=== PATIENT | female | born 1985 | race Caucasian/White ===

== ENCOUNTER 2024-03-04 12:28 | Inpatient (IN) | payer BC, SELFPAY ==
[2024-03-04 12:39] VITALS: BP 125/84; PULSE 96; RESP 18; TEMP 37.1; O2SAT 96; BMI 29.8
[2024-03-04 12:52] LABS: Glucose Point of Care 359 mg/dL (70-110)
--- NOTE | 2024-03-04 13:08 | ED.C_ITS ---
HPI - Psych 2 General: Chief Complaint: Psychiatric Symptoms Stated Complaint: MHE Time Seen by Provider: 03/04/24 12:36 Source: patient Mode of arrival: ambulatory Limitations: no limitations History of Present Illness: 30-year-old female states she has a hist ory of bipolar disorder along with depression states she has been out of her meds and has been having increasing depression. States he had some passing suicidal thoughts no active plans she states she does only be admitted to get some help. She is calm and cooperative here. Associated symptoms: Reports depression and suicidal ideation Review of Systems 2 Const: Denies: fever(s), chills, body aches or change in appetite Eyes: Denies: blurry vision or eye discomfort ENMT: Denies: throat pain or dental pain Card: Denies: chest pain Resp: Denies: dyspnea GI: Denies: abdominal pain, nausea, vomiting or diarrhea Musc: Denies: neck pain or back pain Skin/Breast: Denies: rash Neuro: Denies: headache(s) Psych: Reports: depression and suicidal ideation Physical Exam 2 Const: COMMON NORMALS: no acute distress, patient oriented x3 and healthy appearing HENMT: COMMON NORMALS: normocephalic and atraumatic HEAD & SCALP: n ormocephalic and atraumatic Neck/C-Spine: COMMON NORMALS: full ROM and supple Chest: COMMONS NORMALS: normal inspection of the chest Resp: COMMON NORMALS: normal respiratory effort Cardio: COMMON NORMALS: regular rate, regular rhythm and No murmurs present (Cardio) RATE: regular rate RHYTHM: regular rhythm Extremity: COMMON NORMALS: normal to inspection and full ROM Neuro: COMMON NORMALS: patient oriented x3, moves all extremities and no focal motor deficits Psych: COMMON NORMALS: mental status grossly normal, Normal thought process present and cooperative THOUGHT PROCESS: Normal thought process present Skin: COMMON NORMALS: no rashes or lesions noted and no wounds GENERAL SKIN EXAM: no rashes or lesions noted Course 2 Vital Signs: Vital signs: Vital Signs Temperature 98.8 F 03/04/24 12:39 Pulse Rate 100 03/04/24 14:19 Respiratory Rate 18 03/04/24 12:39 Blood Pressure 119/78 03/04/24 14:19 Pulse Oximetry 97 03/04/24 14:19 Oxygen Delivery Me thod Room Air 03/04/24 14:19 MDM - Psych Medical Decision Making Patient presents here with suicidal ideation she voluntarily wants to be admitted to the psych nino to get help she is medically cleared I spoke to the psychiatrist and will admit. Medical Records I reviewed the patient's medical records. Lab Data I reviewed the patient's lab results. 03/04/24 12:54 03/04/24 12:54 Laboratory Results WBC 9.99 10^3/uL (3.29-11.43) 03/04/24 12:54 RBC 4.75 10^6/uL (3.85-5.65) 03/04/24 12:54 Hgb 14.80 g/dL (11.27-16.99) 03/04/24 12:54 Hct 44.0 % (36-47) 03/04/24 12:54 MCV 92.6 fl (85-98) 03/04/24 12:54 MCH 31.2 pg (27-33) 03/04/24 12:54 MCHC 33.6 g/dL (30-55) 03/04/24 12:54 RDW 12.9 % (12.1-15.1) 03/04/24 12:54 Plt Count 234 10^3/cmm (157-399) 03/04/24 12:54 MPV 12.6 fL (7.4-10.4) H 03/04/24 12:54 Neut % (Auto) 65.7 % 03/04/24 12:54 Lymph % (Auto) 25.1 % 03/04/24 12:54 [place] % (Auto) 6.4 % 03/04/24 12:54 Eos % (Auto) 1.9 % 03/04/24 12:54 Baso % (Auto) 0.6 % 03/04/24 12:54 Neut # (Auto) 6.56 10^3/uL (1.8-7.7) 03/04/24 12:54 Lymph # (Auto) 2.5 10^3/uL (0.8-4.8) 03/04/24 12:54 [place] # (Auto) 0.6 10^3/uL (0.2-0.9) 03/04/24 12:54 Eos # (Auto) 0.2 10^3/uL (0.0-0.8) 03/04/24 12:54 Baso # (Auto) 0.1 10^3/uL (0.0-0.1) 03/04/24 12:54 Nucleated RBC % (auto) 0 % 03/04/24 12:54 Nucleated RBCs # 0.0 /100WBC 03/04/24 12:54 Sodium 135 mmol/L (136-145) L 03/04/24 12:54 Potassium 4.2 mmol/L (3.5-5.1) 03/04/24 12:54 Chloride 100 mmol/L (98-107) 03/04/24 12:54 Carbon Dioxide 20 mmol/L (22-29) L 03/04/24 12:54 Anion Gap 19.2 (5-19) H 03/04/24 12:54 BUN 11 mg/dL (6-20) 03/04/24 12:54 Creatinine 0.5 mg/dL (0.5-0.9) 03/04/24 12:54 GFR Calculation 138.1 mL/min (90-130) H 03/04/24 12:54 Glucose 372 mg/dL (65-115) H 03/04/24 12:54 POC Glucose 359 mg/dL (70-110) H 03/04/24 12:50 Calculated Osmolality 295 mOsm/kg (285-295) 03/04/24 12:54 Calcium 8.6 mg/dL (8.5-10.5) 03/04/24 12:54 Total Bilirubin 0.4 mg/dL (0.15-1.2) 03/04/24 12:54 AST 48 U/L (0-32) H 03/04/24 12:54 ALT 59 U/L (0-33) H 03/04/24 12:54 Alkaline Phosphatase 89 U/L (35-105) 03/04/24 12:54 Total Protein 7.9 g/dL (6.6-8.7) 03/04/24 12:54 Albumin 4.2 g/dL (3.5-5.2) 03/04/24 12:54 Globulin 3.7 g/dL (1.3-4.6) 03/04/24 12:54 HCG, Qual Negative (Negative) 03/04/24 13:01 Salicylates 1.1 mg/dL (3-10) L 03/04/24 12:54 Urine Opiates Screen Negative ng/mL (Negative) 03/04/24 13:01 Acetaminophen < 5.0 ug/mL (10-30) L 03/04/24 12:54 Ur Barbiturates Screen Negative ng/mL (Negative) 03/04/24 13:01 Ur Phencyclidine Scrn Negative ng/mL (Negative) 03/04/24 13:01 Ur Amphetamines Screen Negative ng/mL (Negative) 03/04/24 13:01 U Benzodiazepines Scrn Negative ng/mL (Negative) 03/04/24 13:01 Urine Cocaine Screen Negative ng/mL (Negative) 03/04/24 13:01 U Marijuana (THC) Screen Positive ng/mL (Negative) H 03/04/24 13:01 No radiology studies performed this visit Discharge Plan Discharge Admit Provider: Anand Gilliland Condition: Stable Coding Level of Care Code ED Cutter Operator Helper for Jennifer Grover
[2024-03-04] MEDS: insulin nph human 100 units/1 mL 8 UNIT SUBCUT (13:16)
[2024-03-04 13:23] LABS: Basophils # 0.1 10^3/uL (0.0-0.1); Basophils % 0.6 %; Eosinophils # 0.2 10^3/uL (0.0-0.8); Eosinophils % 1.9 %; Lymphocytes # 2.5 10^3/uL (0.8-4.8); Lymphocytes % 25.1 %; Mean Corpuscular HGB Conc 33.6 g/dL (30-55); Mean Corpuscular Hemoglobin 31.2 pg (27-33); Mean Corpuscular Volume 92.6 fl (85-98); Mean Platelet Volume 12.6 fL (7.4-10.4); Monocytes # 0.6 10^3/uL (0.2-0.9); Monocytes % 6.4 %; Neutrophils # 6.56 10^3/uL (1.8-7.7); Neutrophils % 65.7 %; Nucleated Red Blood Cells % 0 %; Platelet Count 234 10^3/cmm (157-399); Red Blood Count 4.75 10^6/uL (3.85-5.65); Red Cell Distribution Width 12.9 % (12.1-15.1); White Blood Count 9.99 10^3/uL (3.29-11.43)
--- NOTE | 2024-03-04 13:24 | PC.PHAR ---
PT STATES TAKES METFORMIN 1000MG TWICE DAILY AND A LITTLE WHITE PILL STARTING WITH A G (GLYBURIDE 5MG) TWICE DAILY. UNABLE TO VERIFY WITH [facility], [facility], [facility], [facility] IN [place]. THESE MEDS NOT FOUND AT ANY LOCATIONS.
[2024-03-04 13:37] LABS: Acetaminophen < 5.0 ug/mL (10-30); Alanine Aminotransferase 59 U/L (0-33); Albumin Level 4.2 g/dL (3.5-5.2); Alkaline Phosphatase 89 U/L (35-105); Anion Gap 19.2 (5-19); Aspartate Amino Transferase 48 U/L (0-32); Blood Urea Nitrogen 11 mg/dL (6-20); Calcium 8.6 mg/dL (8.5-10.5); Carbon Dioxide 20 mmol/L (22-29); Chloride 100 mmol/L (98-107); Creatinine Clr Calc Pharmacy 166.5266; Globulin 3.7 g/dL (1.3-4.6); Glomerular Filtration Rate 138.1 mL/min (90-130); Glucose 372 mg/dL (65-115); Osmolality Calculated 295 mOsm/kg (285-295); Potassium 4.2 mmol/L (3.5-5.1); Salicylate 1.1 mg/dL (3-10); Sodium 135 mmol/L (136-145); Total Bilirubin 0.4 mg/dL (0.15-1.2); Total Protein 7.9 g/dL (6.6-8.7)
[2024-03-04 13:42] LABS: HCG Qualitative Urine. Negative (Negative)
[2024-03-04 13:56] LABS: Amphetamines Screen Urine Negative (Negative); Barbiturates Screen Urine Negative (Negative); Benzodiazepines Screen Urine Negative (Negative); Cocaine Screen Urine Negative (Negative); Opiate Screen Urine Negative (Negative); PCP Screen Urine Negative (Negative); THC Screen Urine Positive (Negative)
[2024-03-04 14:19] VITALS: BP 119/78; PULSE 100; O2SAT 97
[2024-03-04 14:42] VITALS: BP 106/75; PULSE 83; RESP 16; TEMP 36.9; O2SAT 98
[2024-03-04] MEDS: hyDROXYzine 25 mg Capsule 50 MG PO (15:26)
[2024-03-04] MEDS: nicotine 2 mg Gum BUCCAL (15:27)
[2024-03-04] MEDS: acetaminophen 325 mg Tablet 650 MG PO (16:45)
--- NOTE | 2024-03-04 16:51 | PC.NURSE ---
ADMIT NOTE PT CAME INTO THE EMERGENCY DEPARTMENT WITH COMPLAINT OF INCREASED DEPRESSION. UPON ADMIT TO THE NPU PT STATES THAT SHE IS BIPOLAR. PT STATES IM NOT MENTALLY STABLE RIGHT NOW. I WANT TO HURT PEOPLE WHEN I GET MAD. I JUST DON'T WANT TO LIVE. PT CURRENTLY DENIES ANY PLAN FOR SUICIDE OR ANY SPECIFIC PERSON SHE WANTS TO HARM. PT STATES THAT HE DOES NOT WANT TO KILL HERSELF SHE JUST DOES NOT WANT TO BE ALIVE ANYMORE. WHEN ASKED ABOUT VIOLENT BEHAVIOR PT STATES I HAVE ANGER PROBLEMS. I JUST FIGHT, I LIKE TO FIGHT IT HELPS SOMETHING INSIDE OF ME. . PT WAS COOPERATIVE WITH ASSESSMENT. PT CURRENT NEEDS ARE MET AT THIS TIME.
[2024-03-04 17:16] LABS: Glucose Point of Care 283 mg/dL (70-110)
[2024-03-04] MEDS: nicotine 4 mg lozenge MUCOUS MEM (17:29)
[2024-03-04] MEDS: metformin 500 mg Tablet 1000 MG PO (18:36)
[2024-03-04] MEDS: OLANZapine 5 mg ODT PO (18:44)
--- NOTE | 2024-03-04 19:09 | PC.NURSE ---
Confirmed meds with pharmacy [facility] metformin 100mg BID last filled 02/21/24 Gabapentin 600mg BID last filled 02/23/24 Glipizide 5mg BID last filled 02/22/23 hydroxyzine 50mg BID last filled 03/14/23 Venlafaxine ER 150mg once daily last filled 03/14/23 Trulicity 0.75 mg q 7days last filled 03/14/23
[2024-03-04] MEDS: gabapentin 300 mg Capsule 600 MG PO (20:19)
[2024-03-04 21:03] VITALS: BP 117/80; PULSE 79; RESP 16; TEMP 36.4; O2SAT 98
[2024-03-04 21:12] LABS: Glucose Point of Care 313 mg/dL (70-110)
[2024-03-05 06:00] VITALS: BP 108/75; PULSE 68; RESP 15; TEMP 36.6; O2SAT 98
[2024-03-05 07:43] LABS: Glucose Point of Care 314 mg/dL (70-110)
[2024-03-05] MEDS: metformin 500 mg Tablet 1000 MG PO ×2 (08:35→17:05)
[2024-03-05] MEDS: hyDROXYzine 25 mg Capsule 50 MG PO ×2 (08:36→20:34)
[2024-03-05] MEDS: acetaminophen 325 mg Tablet 650 MG PO (08:36)
[2024-03-05] MEDS: gabapentin 300 mg Capsule 600 MG PO ×2 (08:36→17:05)
--- NOTE | 2024-03-05 08:58 | PC.NURSE ---
PT WATCHING TV IN DAYROOM. DENIES SI/HI AND AVH AT THIS TIME. REPORTS BACK PAIN 8/10 TYLENOL 650 MG GIVEN ORDERED FOR PAIN. RATES ANXIETY 7/10 AND DEPRESSION 0/10. VISTARIL 50 MG GIVEN ORDERED FOR ANXIETY. PT REPORTS SHE DID NOT SLEEP WELL LAST NIGHT. PT EDUCATED ON PRN MEDICATIONS AT NIGHT IF NEEDED. PT GOAL FOR THE DAY IS TO GET MY MENTAL HEALTH FIGURED OUT WHILE I'M HERE. PT IS NOTED TO HAVE DEPRESSED MOOD WITH ANXIETY. FLAT AFFECT IS NOTED. ALL QUESTIONS ANSWERED AND SUPPORT WAS VOICED.
[2024-03-05] MEDS: nicotine 21 mg Patch 1 PATCH TRANSDERMA (10:30)
[2024-03-05] MEDS: OLANZapine 5 mg ODT PO (11:09)
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
[2024-03-05 11:27] LABS: Glucose Point of Care 387 mg/dL (70-110)
[2024-03-05] MEDS: albuterol 2.5 mg/3 mL Neb INHALATION (13:30)
[2024-03-05 13:32] VITALS: PULSE 94; RESP 16; O2SAT 92
[2024-03-05 13:37] VITALS: PULSE 96
[2024-03-05 14:00] VITALS: BP 121/81; PULSE 84; RESP 20; TEMP 36.4; O2SAT 100
[2024-03-05] MEDS: docusate sodium 100 mg Capsule 200 MG PO (17:05)
[2024-03-05 17:18] LABS: Glucose Point of Care 398 mg/dL (70-110)
[2024-03-05 19:57] LABS: Glucose Point of Care 348 mg/dL (70-110)
[2024-03-05] MEDS: trazodone 50 mg Tablet PO (20:35)
[2024-03-05 22:00] VITALS: BP 95/61; PULSE 81; RESP 16; TEMP 36.6; O2SAT 97
[2024-03-06] MEDS: acetaminophen 325 mg Tablet 650 MG PO ×2 (02:58→14:48)
[2024-03-06 06:00] VITALS: BP 111/76; PULSE 75; RESP 16; O2SAT 96
[2024-03-06] MEDS: nicotine 21 mg Patch 1 PATCH TRANSDERMA (07:51)
[2024-03-06 07:52] LABS: Glucose Point of Care 403 mg/dL (70-110)
[2024-03-06] MEDS: gabapentin 300 mg Capsule 600 MG PO ×2 (07:54→17:59)
[2024-03-06] MEDS: hyDROXYzine 25 mg Capsule 50 MG PO ×3 (07:54→20:30)
[2024-03-06] MEDS: metformin 500 mg Tablet 1000 MG PO ×2 (07:55→17:59)
[2024-03-06] MEDS: albuterol 2.5 mg/3 mL Neb INHALATION ×2 (07:59→15:44)
[2024-03-06 08:01] VITALS: PULSE 86; RESP 18; O2SAT 96
[2024-03-06 08:08] VITALS: PULSE 87
[2024-03-06] MEDS: insulin lispro 100 unit/1 mL SUBCUT ×4 (08:37→20:28)
--- NOTE | 2024-03-06 08:54 | PC.NURSE ---
Patient walking in hallway and requesting nicotine patch. Patient's blood glucose was 403. This RN relayed this to Dr. Simms and low dose insulin orders wm&hs were given until a hospitalist could come to see her and give further orders. Patient agreed to be administered the insulin.
[2024-03-06] MEDS: OLANZapine 5 mg ODT PO ×3 (09:26→20:32)
[2024-03-06] MEDS: docusate sodium 100 mg Capsule 200 MG PO (11:06)
[2024-03-06] MEDS: polyethylene glycol 3350 Pkt 17 gm PO (11:30)
[2024-03-06 11:40] LABS: Glucose Point of Care 334 mg/dL (70-110)
--- NOTE | 2024-03-06 12:14 | PC.NURSE ---
Room searched for contraband. Chips confiscated.
--- NOTE | 2024-03-06 12:35 | PC.NURSE ---
Dr. Simms notified that patient's blood sugar came down to only 334 after giving 14 units on the low dose sliding scale. Doctor ordered this RN to change the low dose insulin sliding scale protocol to the high dose protocol. He also stated he would consult with a hospitalist.
[2024-03-06 14:00] VITALS: BP 97/64; PULSE 87; RESP 20; TEMP 37.1; O2SAT 95
[2024-03-06] MEDS: alum-mag-hydroxide-sime 30 mL UDC PO (15:30)
[2024-03-06 15:46] VITALS: PULSE 81; RESP 18; O2SAT 96
[2024-03-06 17:46] LABS: Glucose Point of Care 335 mg/dL (70-110)
[2024-03-06 19:52] LABS: Glucose Point of Care 347 mg/dL (70-110)
[2024-03-06] MEDS: loratadine 10 mg Tablet PO (20:29)
[2024-03-06 21:04] VITALS: BP 110/75; PULSE 81; RESP 18; TEMP 36.7; O2SAT 96
[2024-03-06] MEDS: zolpidem 5 mg Tablet PO (21:39)
[2024-03-06] MEDS: venlafaxine ER (24HR) 75 mg Capsule PO (21:39)
--- NOTE | 2024-03-06 21:46 | P.NPUPN_ITS ---
Subjective NPU 2 Subjective: 38-year-old female admitted with depression and anxiety with suicidal ideation. She had reportedly been off of her Effexor for at least 6 months. She had reported that the Effexor had been helpful for her but had given her withdrawal symptoms when she had stopped it acutely. Patient had reported having problems with sleep as well. She reported continued feelings of hopelessness. She had reported that she wished to get back into counseling. She had reported previously using illicit substances but reported. She had endorsed a history of prior trauma. She had reported having difficulties with falling asleep and stated that she had violent dreams. She had not endorsed any clear symptoms of tien currently. Mental Status Exam 2 MSE Comments: This is an overweight versus obese white female in hospital scrubs with poor grooming and intermittent eye contact. Appearing older than her stated age with poor dentition. With no abnormal movements except for mild psychomotor retardation. She was cooperative with exam in mild to moderate distress. Speech was normal in regards to rate rhythm and prosody. Her mood was described as okay. Her affect was restricted in range and mood congruent. Her thought process was linear and organized. Thought content: She denied suicidal or homicidal ideation. There was no evidence of delusional thinking. She denied any auditory or visual hallucinations. She denies current thoughts of self-harm or harm to others. Her attention was limited her concentration appeared limited and memory was mostly reliable reliable but none were formally tested. Her insight and judgment were limited and her impulse control is impaired. Vitals/I&O/Wt Last Vital Signs Temp 98.1 F 03/06/24 21:04 Pulse 81 03/06/24 21:04 Resp 18 03/06/24 21:04 BP 110/75 03/06/24 21:04 Pulse Ox 96 03/06/24 21:04 O2 Del Method Room Air 03/06/24 21:04 Data NPU 03/04/24 12:54 03/04/24 12:54 A&P Assessment and plan (1) PTSD (post-traumatic stress disorder): (2) Major depressive disorder: (3) Methamphetamine use disorder, severe, in early remission, dependence: Plan The patient is a 38-year-old white female with a long history of mental health and addiction issues including some alcohol abuse and methamphetamine dependence with significant trauma and recent homelessness. She presents reporting a history of bipolar disorder, anxiety, depression, and paranoia. She has a history of substance abuse but has been clean for several months. She is currently homeless and has a history of legal issues. She is seeking to get back on her medication, specifically Effexor. 1.? Will attempt to gather collateral information. 2.? Encourage individual, group and milieu therapy 3.? Continue q-15 minute check for safety 4.? Recommend sober living treatment at the highest level of care to which the patient is willing to commit. 5. Restart effexor xr 75mg with plan to increase to 150mg to target anxiety and depression as previously prescribed. Add ambien for sleep. Involuntary Hold Information 2 96 Hour Hold: 96 Hour Involuntary Admission: No Attestations NPU 2 Medical Necessity Statement*: Inpatient hospitalization is medically necessary and the clinically appropriate intervention at this time. We will monitor medications and make changes as indicated. Patient's likely length of stay is 3-5 days. Coding Level of Care Code Acute Code for [facility] Diagnoses PTSD (post-traumatic stress disorder) F43.10 Major depressive disorder F32.9 Methamphetamine use disorder, severe, in early remission, dependence F15.21
[2024-03-07 06:00] VITALS: BP 133/92; PULSE 94; RESP 17; TEMP 36.5; O2SAT 96
[2024-03-07] MEDS: metformin 500 mg Tablet 1000 MG PO (07:15)
[2024-03-07] MEDS: acetaminophen 325 mg Tablet 650 MG PO (07:15)
[2024-03-07 07:51] LABS: Glucose Point of Care 290 mg/dL (70-110)
[2024-03-07] MEDS: polyethylene glycol 3350 Pkt 17 gm PO (09:42)
[2024-03-07] MEDS: insulin lispro 100 unit/1 mL SUBCUT ×2 (09:43→12:36)
[2024-03-07] MEDS: venlafaxine ER (24HR) 75 mg Capsule PO (09:43)
[2024-03-07] MEDS: loratadine 10 mg Tablet PO (09:43)
[2024-03-07] MEDS: gabapentin 300 mg Capsule 600 MG PO (09:43)
[2024-03-07] MEDS: nicotine 21 mg Patch 1 PATCH TRANSDERMA (09:48)
[2024-03-07] MEDS: OLANZapine 5 mg ODT PO (09:51)
[2024-03-07] MEDS: ibuprofen 600 mg Tablet PO (11:04)
[2024-03-07 11:08] LABS: Glucose Point of Care 295 mg/dL (70-110)
--- NOTE | 2024-03-07 12:27 | PC.NURSE ---
Patient room searched for contraband. None found.
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
[2024-03-07 13:28] VITALS: BP 133/92; PULSE 94; RESP 17; TEMP 36.5; O2SAT 96
== END 2024-03-07 14:40 | disposition home or self-care (01) | DRG 881 ==
LOC: ER 13:14 → NP 13:43
PROVIDERS: Admitting Provider Psychiatry & Neurology Psychiatry; Emergency Provider Emergency Medicine; Visit Provider Psychiatry & Neurology Psychiatry
DX: F32.9 Major depressive disorder, single episode, unspecified (principal); R45.851 Suicidal ideations; F19.20 Other psychoactive substance dependence, uncomplicated; Z59.00 Homelessness unspecified; F43.10 Post-traumatic stress disorder, unspecified; F41.9 Anxiety disorder, unspecified; E11.9 Type 2 diabetes mellitus without complications; F17.210 Nicotine dependence, cigarettes, uncomplicated; Z63.0 Problems in relationship with spouse or partner; Z79.84 Long term (current) use of oral hypoglycemic drugs; Z79.85 Long-term (current) use of injectable non-insulin antidiabetic drugs
CPT/HCPCS: 36415; 36416; 80053; 80306; 80307; 81025; 82962; 85025; 94640; 94664; 96372; 97150; 99285; J1815; J7613